=== PATIENT | female | born 1940 | race Caucasian/White ===

== ENCOUNTER → 2016-03-29 | Outpatient (CLI) | payer OTHER, MEDICARE ==
[~2016-03-29] MED LIST: ADVIN10/60 INH; ASPI1TAB PO; CETI10TA84 PO; CYAN250T PO; FURO40TA3 PO; LISI40TA PO; LPT/40 PO; MECL1TAB42 PO; METO-452 PO; OMEG1CAP81 PO; POTA-327 PO; PRVHFAIN INH; SENN1TAB65 PO
--- NOTE | 2016-03-29 09:53 | DIAGNOSTIC IMAGING REPORT ---
CHEST 2 VIEWS ROUTINE CLINICAL HISTORY: Cough. COMPARISON STUDY: Chest radiograph May 20, 2012. FINDINGS: Elevation of the right hemidiaphragm is unchanged. No pneumothorax or pleural effusion is present. Linear left basilar opacity is suggestive of atelectasis. There is no evidence of pulmonary edema. Cardiac size is at the upper limits of normal. The appearance of the chest is unchanged. IMPRESSION: No acute cardiopulmonary findings. Electronically signed by: Toni Waller M.D. 03/29/2016 9:52 AM
== END | disposition home or self-care (01) ==
LOC: C.RADBC 09:35
PROVIDERS: ATTEND Internal Medicine
DX: R05 Cough (principal)

== ENCOUNTER → 2016-05-29 | Outpatient (CLI) | payer OTHER, MEDICARE ==
[~2016-05-29] MED LIST changes: -METO-452 PO; +METO1TAB66 PO
[2016-05-29 10:23] LABS: BLOOD UREA NITROGEN 11 mg/dl (7-18); BUN/CREATININE RATIO 16.8 (10-20); CALCIUM 9.2 mg/dl (8.5-10.1); CARBON DIOXIDE 30 mmol/L (21-32); CHLORIDE 104 mmol/L (98-107); CREATININE 0.66 mg/dl (0.60-1.20); GLUCOSE 98 mg/dl (70-99); POTASSIUM 3.4 mmol/L (3.5-5.1); SODIUM 145 mmol/L (136-145)
[2016-05-29 11:21] LABS: ESTIMATED AVERAGE GLUCOSE 111 mg/dl; HA1C FLAG Normal (Normal)
== END | disposition home or self-care (01) ==
LOC: C.LABFOXMH 09:29
PROVIDERS: ATTEND Internal Medicine
DX: E11.9 Type 2 diabetes mellitus without complications (principal)

== ENCOUNTER → 2016-06-19 | Outpatient (CLI) | payer OTHER, MEDICARE | END | disposition home or self-care (01) | LOC: C.LABFOXMH 07:55 | PROVIDERS: ATTEND Internal Medicine | DX: E87.6 Hypokalemia (principal) ==

== ENCOUNTER → 2016-08-15 | Outpatient (CLI) | payer OTHER, MEDICARE ==
[~2016-08-15] MED LIST changes: +METO-452 PO; -METO1TAB66 PO
--- NOTE | 2016-08-15 12:04 | DIAGNOSTIC IMAGING REPORT ---
CHEST 2 VIEWS ROUTINE CLINICAL HISTORY: COUGH dyspnea COMPARISON STUDY: 03/29/2016 FINDINGS: Chronic atelectatic change left base. Lungs otherwise are clear. No evidence for cardiac enlargement. IMPRESSION: Chronic change left base. No acute process. Electronically signed by: Juan Carlos Hopkins M.D. 08/15/2016 12:03 PM Dictated Date/Time: 08/15/2016 12:02 PM
== END | disposition home or self-care (01) ==
LOC: C.RADBC 11:41
PROVIDERS: ATTEND Internal Medicine
DX: R05 Cough (principal)

== ENCOUNTER → 2016-10-24 | Outpatient (CLI) | payer OTHER, MEDICARE ==
[~2016-10-24] MED LIST changes: -METO-452 PO; +METO1TAB66 PO
[2016-10-24 11:37] LABS: BLOOD UREA NITROGEN 11 mg/dl (7-18); BUN/CREATININE RATIO 15.4 (10-20); CARBON DIOXIDE 30 mmol/L (21-32); CHLORIDE 108 mmol/L (98-107); CHOLESTEROL 111 mg/dl (0-200); CHOLESTEROL/HDL RATIO 2.6; CREATININE 0.74 mg/dl (0.60-1.20); GLUCOSE 86 mg/dl (70-99); HDL CHOLESTEROL 42 mg/dl; LDL CHOLESTEROL CALCULATED 39 mg/dl; POTASSIUM 3.7 mmol/L (3.5-5.1); SODIUM 144 mmol/L (136-145); TRIGLYCERIDES 152 mg/dl (0-150); VERY LOW DENSITY LIPOPROT CALC 30 mg/dl
[2016-10-24 12:02] LABS: ESTIMATED AVERAGE GLUCOSE 105 mg/dl; HA1C FLAG Normal (Normal)
--- NOTE | 2016-11-01 08:23 | CODING QUERY MEDICAL NECESSITY ---
SUPPORTING DIAGNOSIS NEEDED A supporting diagnosis is required for the test/procedure performed on this patient in order for us to be reimbursed by the patient's insurance. Please provide a supporting diagnosis for the following test/procedure listed below next to the test name along with your signature. *If there is no additional diagnosis for this patient that would support the following test/procedure please document that below next to the test/procedure. Test(s)/Procedure(s) that require a supporting diagnosis: * HEMOGLOBIN A1C DIAGNOSIS: Provider Signature: Date: Thank you Nancy Sahu [employer] Once completed, please kindly fax back to [phone] For questions please call [phone]
== END | disposition home or self-care (01) ==
LOC: C.LABFOXMH 09:40
PROVIDERS: ATTEND Internal Medicine
DX: E88.81 Metabolic syndrome and other insulin resistance (principal); E11.9 Type 2 diabetes mellitus without complications

== ENCOUNTER → 2017-03-02 | Outpatient (CLI) | payer OTHER, MEDICARE ==
[~2017-03-02] MED LIST changes: +METO-452 PO; -METO1TAB66 PO
[2017-03-02 10:13] LABS: ALT/SGPT 32 U/L (12-78); AST/SGOT 18 U/L (15-37); BLOOD UREA NITROGEN 12 mg/dl (7-18); BUN/CREATININE RATIO 19.2 (10-20); CARBON DIOXIDE 31 mmol/L (21-32); CHLORIDE 104 mmol/L (98-107); CREATININE 0.64 mg/dl (0.60-1.20); GLUCOSE 96 mg/dl (70-99); POTASSIUM 4.2 mmol/L (3.5-5.1); SODIUM 138 mmol/L (136-145)
[2017-03-02 10:15] LABS: ALB/GLOB RATIO 1.1 (0.9-2); ALKALINE PHOSPHATASE 72 U/L (45-117); CHOLESTEROL 104 mg/dl (0-200); CHOLESTEROL/HDL RATIO 2.6; HDL CHOLESTEROL 40 mg/dl; LDL CHOLESTEROL CALCULATED 30 mg/dl; TRIGLYCERIDES 171 mg/dl (0-150); VERY LOW DENSITY LIPOPROT CALC 34 mg/dl
== END | disposition home or self-care (01) ==
LOC: C.LABFOXMH 09:41
PROVIDERS: ATTEND Internal Medicine
DX: E78.00 Pure hypercholesterolemia, unspecified (principal)

== ENCOUNTER → 2017-03-29 | Outpatient (CLI) | payer OTHER, MEDICARE ==
--- NOTE | 2017-03-30 14:36 | MAMMOGRAPHY REPORT ---
BILATERAL DIGITAL SCREENING MAMMOGRAM TOMOSYNTHESIS WITH CAD: 03/29/2017 CLINICAL HISTORY: Routine screening. Patient has no complaints. TECHNIQUE: Breast tomosynthesis in addition to standard 2D mammography was performed. Current study was also evaluated with a Computer Aided Detection (CAD) system. COMPARISON: Comparison is made to exams dated: 02/11/2016 mammogram, 02/08/2015 mammogram, 4 mammogram, 02/04/2013 mammogram, 02/02/2012 mammogram, and 01/20/2011 mammogram - [facility]. BREAST COMPOSITION: The tissue of both breasts is heterogeneously dense, which may obscure small mas ses. FINDINGS: There is a 12 mm asymmetry in the posterior right breast along the posterior nipple line o n the CC view that partially effaces on the corresponding tomosynthesis images and could represent no rmal fibroglandular tissue. However, additional spot compression tomosynthesis views and possible ul trasound are recommended. A questionable area of architectural distortion in the lateral left breast only seen on the CC tomosynthesis images (slice 33/68) for which additional spot compression tomosyn thesis views and possible ultrasound are recommended. There are scattered benign rim calcifications in the breasts. No other suspicious mass, architectura l distortion or cluster of microcalcifications is seen. IMPRESSION: ACR BI-RADS CATEGORY 0: INCOMPLETE EVALUATION: NEED ADDITIONAL IMAGING EVALUATION The 12 mm asymmetry in the right breast and questionable area of architectural distortion in the late ral left breast need additional imaging evaluation. The patient will be called to schedule an appointment. Approximately 10% of breast cancers are not detected with mammography. A negative mammographic report should not delay biopsy if a clinically suggestive mass is present. Noreen Ordaz M.D. ay/:03/29/2017 13:25:08 Stator Winder: Paulette TARANGO)(Renzo)(BD), [facility] letter sent: Addl Imaging 0 BI-RADS Code: ACR BI-RADS Category 0: Incomplete Evaluation: Need Additional Imaging Evaluation
== END ==
LOC: C.MAMM 11:36
PROVIDERS: ATTEND Internal Medicine
DX: Z12.31 Encounter for screening mammogram for malignant neoplasm of breast (principal); N64.89 Other specified disorders of breast

== ENCOUNTER → 2017-04-04 | Outpatient (CLI) | payer OTHER, MEDICARE ==
--- NOTE | 2017-04-04 15:32 | MAMMOGRAPHY REPORT ---
BILATERAL DIGITAL DIAGNOSTIC MAMMOGRAM TOMOSYNTHESIS AND TARGETED RIGHT ULTRASOUND: 04/04/2017 CLINICAL HISTORY: 76-year-old woman called back from screening mammography for a right breast asymmet ry and possible architectural distortion in the left lateral breast. Family history of breast cancer = sister. TECHNIQUE: Spot compression right CC, left CC and right MLO tomosynthesis images were obtained. COMPARISON: Comparison is made to exams dated: 03/29/2017 mammogram, 02/11/2016 mammogram, 02/08/2015 mammogram, 02/05/2014 mammogram, 02/04/2013 mammogram, and 02/02/2012 mammogram - [facility]. BREAST COMPOSITION: The tissue of both breasts is heterogeneously dense, which may obscure small mas ses. FINDINGS: The spot compression tomosynthesis images of the left breast demonstrate complete effacemen t of the possible area of architectural distortion in the lateral middle one third of the breast. Th e questionable distortion seen on screening mammography most likely represented normal overlapping ti ssue. There are no other areas of distortion or suspicious masses in the visualized left breast. A circumscribed mass in the lateral left breast appears similar dating back to 02/11/2016, most likely benign. The spot compression tomosynthesis views of the right breast demonstrate effacement of the 13 mm asym metry is seen on the right CC projection. There is no evidence of a persistent mass or architectural distortion. No persistent asymmetry is seen. Further evaluation with ultrasound was performed. Targeted ultrasound was performed throughout the right breast with particular attention to the 12:00, retroareolar and 6:00 axes. Numerous anechoic cysts and cyst clusters are seen throughout the right breast most notably in the 6:00 axis and 11:00 axis. It is unclear if a dominant anechoic cyst in t he 6:00 right breast, 3 cm from the nipple measuring 8 mm may possibly correspond to the mammographic asymmetry. However, no suspicious solid mass is seen on targeted ultrasound. IMPRESSION: ACR-BI-RADS CATEGORY 3: PROBABLY BENIGN, TARGETED ULTRASOUND ACR-BI-RADS CATEGORY 3: PRO BABLY BENIGN 1. There is partial effacement of an asymmetry in the middle one third of the right breast along the posterior nipple line on the CC view with supplemental spot compression tomosynthesis images. This could represent normal tissue or possibly correspond to a benign anechoic 8 mm cyst identified in the 6:00 right breast on ultrasound. Overall, although the appearance is probably benign, a short inter emmanuel follow-up right diagnostic tomosynthesis mammogram and possible repeat ultrasound is recommended to ensure stability in 6 months. 2. Effacement of the possible architectural distortion in the lateral left breast with additional sp ot compression tomosynthesis images, suggesting it represented normal overlapping tissue. These results and recommendations were discussed with the patient at the time of the exam. She tenta tively scheduled a follow-up appointment prior to leaving our department. Approximately 10% of breast cancers are not detected with mammography. A negative mammographic report should not delay biopsy if a clinically suggestive mass is present. Noreen Ordaz M.D. ay/:04/04/2017 13:52:21 Payroll Clerk: Gallo TARANGO)(Renzo), [facility] letter sent: Follow Up Recommended 3 BI-RADS Code: ACR-BI-RADS Category 3: Probably Benign Ultrasound BI-RADS: ACR-BI-RADS Category 3: Pr obably Benign
== END | disposition home or self-care (01) ==
LOC: C.MAMM 12:08
PROVIDERS: ATTEND Internal Medicine
DX: N64.89 Other specified disorders of breast (principal); N60.01 Solitary cyst of right breast

== ENCOUNTER → 2017-04-16 | Outpatient (CLI) | payer OTHER, MEDICARE ==
--- NOTE | 2017-04-16 13:49 | DIAGNOSTIC IMAGING REPORT ---
RIGHT ANKLE 3 VIEWS HISTORY: FALL,PAIN/SWELLING OF RIGHT ANKLE COMPARISON: None. FINDINGS: Tiny ossific density along the inferior aspect of the lateral malleolus consistent within age-indeterminate avulsion injury. Otherwise, no acute fracture or dislocation within the right ankle. Diffuse soft tissue swelling. No radiopaque foreign bodies. IMPRESSION: Tiny ossific density along the inferior aspect of the lateral malleolus consistent within age-indeterminate avulsion injury. Otherwise, no acute fracture or dislocation within the right ankle. Electronically signed by: Harish Rendon M.D. 04/16/2017 1:48 PM Dictated Date/Time: 04/16/2017 1:40 PM
== END | disposition home or self-care (01) ==
LOC: C.RADBC 13:15
PROVIDERS: ATTEND Internal Medicine
DX: M85.88 Other specified disorders of bone density and structure, other site (principal); M25.571 Pain in right ankle and joints of right foot; W19.XXXA Unspecified fall, initial encounter

== ENCOUNTER → 2017-07-16 | Outpatient (CLI) | payer OTHER, MEDICARE ==
--- NOTE | 2017-07-16 11:07 | DIAGNOSTIC IMAGING REPORT ---
TWO VIEW CHEST CLINICAL HISTORY: Cough of several weeks' duration. FINDINGS: PA and lateral chest radiographs are compared to study dated 08/15/2016. The heart is mildly enlarged and there is atherosclerotic calcification of the thoracic aorta. The pulmonary vasculature is noncongested. Chronic interstitial thickening is similar to previous. Atelectasis is noted at both lung bases. There is no airspace consolidation typical for pneumonia or pleural effusion. There is no pneumothorax. The skeletal structures are osteopenic. Degenerative change is seen throughout the thoracic spine. IMPRESSION: Mild cardiac enlargement with no acute cardiopulmonary abnormality. Electronically signed by: Loi Payton M.D. 07/16/2017 11:05 AM Dictated Date/Time: 07/16/2017 11:03 AM
[2017-07-16 14:18] LABS: BLOOD UREA NITROGEN 11 mg/dl (7-18); CALCIUM 9.4 mg/dl (8.5-10.1); CARBON DIOXIDE 32 mmol/L (21-32); CREATININE 0.67 mg/dl (0.60-1.20); GLUCOSE 126 mg/dl (70-99); POTASSIUM 4.2 mmol/L (3.5-5.1); SODIUM 141 mmol/L (136-145)
== END ==
LOC: C.RADBC 10:22
PROVIDERS: ATTEND Internal Medicine
DX: R60.9 Edema, unspecified (principal); R05 Cough

== ENCOUNTER 2022-07-18 10:16 | Inpatient (IN) ==
--- NOTE | 2022-07-05 09:52 | PAT Medication Instructions ---
Medication Instructions Date of Service July 05, 2022 Home Medications carvedilol 6.25 mg tablet 6.25 mg PO BID cetirizine 10 mg tablet (Zyrtec) 5 mg PO QAM cholecalciferol (vitamin D3) 50 mcg (2,000 unit) capsule (Vitamin D3) 2,000 unit PO QAM fluticasone 100 mcg-salmeterol 50 mcg/dose blistr powdr for inhalation (Advair Diskus) 1 puff inhalation BID fosinopril 40 mg tablet 40 mg PO QAM furosemide 40 mg tablet 20 mg PO 5XWK gabapentin 100 mg capsule 100 mg PO BID omega 4-hpa-xdf-fish oil 1,000 mg (120 mg-180 mg) capsule (Fish Oil) 1 cap PO QPM omega 3-qid-wti-fish oil 1,000 mg (120 mg-180 mg) capsule (Fish Oil) 2 cap PO QAM potassium chloride 10 mEq tablet,extended release(part/cryst) 10 meq PO BID albuterol sulfate 1.25 mg/3 mL solution for nebulization 1.25 mg inhalation QID PRN ascorbic acid (vitamin C) 1,000 mg tablet (Vitamin C) 1 g PO QAM biotin 1 mg capsule 1 mg PO QAM fluticasone fur. 100 mcg-umeclid 62.5 mcg-vilant 25 mcg inhalat.powder (Trelegy Ellipta) 1 inh inhalation QAM hydrocodone-homatropine 5 mg-1.5 mg tablet 1 tab PO HS PRN magnesium 250 mg tablet 250 mg PO QPM polyethylene glycol 3350 17 gram oral powder packet (Miralax) 17 g PO DAILY PRN vitamin E 400 unit tablet 45 mg PO QAM vitamins A,C,S-pfec-ydpiap 2,148 mcg-113 mg-45 mg-17.4 mg tablet (PreserVision AREDS) 1 tab PO BID STOP taking 2 weeks before surgery (or as soon as possible if surgery is within 2 weeks) omega 8-npq-bjo-fish oil 1,000 mg (120 mg-180 mg) capsule (Fish Oil) 1 cap PO QPM omega 3-afy-daa-fish oil 1,000 mg (120 mg-180 mg) capsule (Fish Oil) 2 cap PO QAM vitamin E 400 unit tablet 45 mg PO QAM vitamins A,C,N-wodu-stxqxs 2,148 mcg-113 mg-45 mg-17.4 mg tablet (PreserVision AREDS) 1 tab PO BID biotin 1 mg capsule 1 mg PO QAM DO NOT take the morning of surgery cetirizine 10 mg tablet (Zyrtec) 5 mg PO QAM cholecalciferol (vitamin D3) 50 mcg (2,000 unit) capsule (Vitamin D3) 2,000 unit PO QAM fosinopril 40 mg tablet 40 mg PO QAM furosemide 40 mg tablet 20 mg PO 5XWK potassium chloride 10 mEq tablet,extended release(part/cryst) 10 meq PO BID ascorbic acid (vitamin C) 1,000 mg tablet (Vitamin C) 1 g PO QAM polyethylene glycol 3350 17 gram oral powder packet (Miralax) 17 g PO DAILY PRN Take morning of surgery With a small sip of water, OTHERWISE NOTHING TO EAT OR DRINK AFTER MIDNIGHT: carvedilol 6.25 mg tablet 6.25 mg PO BID fluticasone 100 mcg-salmeterol 50 mcg/dose blistr powdr for inhalation (Advair Diskus) 1 puff inhalation BID gabapentin 100 mg capsule 100 mg PO BID fluticasone fur. 100 mcg-umeclid 62.5 mcg-vilant 25 mcg inhalat.powder (Trelegy Ellipta) 1 inh inhalation QAM albuterol sulfate 1.25 mg/3 mL solution for nebulization 1.25 mg inhalation QID PRN(use if needed; please bring with you to hospital day of surgery if possible) Take evening before surgery carvedilol 6.25 mg tablet 6.25 mg PO BID fluticasone 100 mcg-salmeterol 50 mcg/dose blistr powdr for inhalation (Advair Diskus) 1 puff inhalation BID gabapentin 100 mg capsule 100 mg PO BID potassium chloride 10 mEq tablet,extended release(part/cryst) 10 meq PO BID magnesium 250 mg tablet 250 mg PO QPM albuterol sulfate 1.25 mg/3 mL solution for nebulization 1.25 mg inhalation QID PRN(if needed) hydrocodone-homatropine 5 mg-1.5 mg tablet 1 tab PO HS PRN(if needed) Other Notes If you have any questions please call us at [phone] or [phone] or [phone] or [phone]
--- NOTE | 2022-07-07 09:40 | Anesthesiology Consultation ---
Date of Service July 07, 2022 Assessment & Plan (1) Encounter for pre-operative examination: - awaiting cardiology pre-op evaluation. - Case discussed in detail with Dr. Dennis who advised pt to have cardiology pre-op evaluation. Pt aware, states she has only ever followed with [facility] in the past and would prefer [facility] if possible. Surgeon's office made aware. - Outpatient joint assessment: Patient is currently scheduled for inpatient pathway. If re-evaluated pending system levels during current pandemic/surgeon requests outpatient pathway, patient is not acceptable candidate for outpatient joint program from anesthesia standpoint. Chart Review Chart Review: Pending: Refer to Additional Notes / Consult section and Patient seen in Pre Admission Testing Teaching & Discussion Pre-Anesthesia Teaching/Discussion Notes: Instructed NPO after midnight before surgery, except medications with 15 cc of water. Medication instructions provided according to the PAT guidelines. History Surgery Operation Date: 07/18/22 12:30 Proposed Procedures p Right Total Knee Arthroplasty - Sanjeev Rosales MD Height/Weight Height: 5 ft 4 in Weight: 83.3 kg Allergies Allergy/AdvReac Type Severity Reaction Status Date / Time NSAIDS (Non-Steroidal AdvReac Intermediate hypertensio Verified 07/07/22 08:54 Anti-Inflamma n Sulfa (Sulfonamide AdvReac Unknown Diarrhea Verified 07/04/22 14:18 Antibiotics) levaquin AdvReac Severe QT Uncoded 07/07/22 08:54 prolongation Medications Home Medications Medication Instructions Recorded Confirmed Last Taken carvedilol 6.25 mg tablet 6.25 mg PO BID 05/23/18 07/04/22 Unknown cetirizine 10 mg tablet (Zyrtec) 5 mg PO QAM 05/23/18 07/04/22 Unknown cholecalciferol (vitamin D3) 50 2,000 unit PO QAM 05/23/18 07/04/22 Unknown mcg (2,000 unit) capsule (Vitamin D3) fosinopril 40 mg tablet 40 mg PO QAM 05/23/18 07/04/22 Unknown furosemide 40 mg tablet 20 mg PO 5XWK 05/23/18 07/04/22 Unknown gabapentin 100 mg capsule 100 mg PO BID 05/23/18 07/04/22 Unknown omega 3-yiz-nvo-fish oil 1,000 mg 1 cap PO QPM 05/23/18 07/04/22 Unknown (120 mg-180 mg) capsule (Fish Oil) omega 6-dvd-uru-fish oil 1,000 mg 2 cap PO QAM 05/23/18 07/04/22 Unknown (120 mg-180 mg) capsule (Fish Oil) potassium chloride 10 mEq 10 meq PO BID 05/23/18 07/04/22 Unknown tablet,extended release(part/cryst) albuterol sulfate 1.25 mg/3 mL 1.25 mg inhalation QID PRN sob 07/04/22 07/04/22 Unknown solution for nebulization ascorbic acid (vitamin C) 1,000 mg 1 g PO QAM 07/04/22 07/04/22 Unknown tablet (Vitamin C) biotin 1 mg capsule 1 mg PO QAM 07/04/22 07/04/22 Unknown fluticasone fur. 100 mcg-umeclid 1 inh inhalation QAM 07/04/22 07/04/22 Unknown 62.5 mcg-vilant 25 mcg inhalat.powder (Trelegy Ellipta) hydrocodone-homatropine 5 mg-1.5 1 tab PO HS PRN ud 07/04/22 07/04/22 Unknown mg tablet magnesium 250 mg tablet 250 mg PO QPM 07/04/22 07/04/22 Unknown polyethylene glycol 3350 17 gram 17 g PO DAILY PRN Constipation 07/04/22 07/04/22 Unknown oral powder packet (Miralax) vitamin E 400 unit tablet 45 mg PO QAM 07/04/22 07/04/22 Unknown vitamins A,C,L-qwwi-jlzruk 2,148 1 tab PO BID 07/04/22 07/04/22 Unknown mcg-113 mg-45 mg-17.4 mg tablet (PreserVision AREDS) chana (Ultra-Light Rollator misc) #1 ea 07/07/22 07/07/22 Unknown Additional Notes: Pt called office after PAT appt to state is no longer Rx Advair diskus, is using Trelegy. Medication list updated. Past Medical History Medical History (Updated 07/07/22 @ 09:36 by Diane Salazar PA-C) Asthma COPD (chronic obstructive pulmonary disease) daily inhaler use, last albuterol nebulizer in early 2021 Frequent PVCs saw [facility] in 2018, lost to f/u HLD (hyperlipidemia) HTN (hypertension) controlled, stable per pt Patient denies h/o stroke, seizures, heart attack, heart failure, DM, blood clots or blood transfusions. Exercise / Class Metabolic Activity III < 4 Walking/Shop/Light housework (occasional SOB with usual activities on flat surfaces, ambulates with rolling walker) Past Family History Family History Other No family history of adverse response to anesthesia Past Surgical History Surgical History History of cataract surgery History of colonoscopy History of hysterectomy History of tooth extraction Past Anesthesia History No Hx of Anesthesia Complications and No Family Hx of Anesthesia Complications History of PONV History of PONV (with hysterectomy) and Hx of Motion Sickness Social History Smoking Status: Former smoker Do You Dip or Chew Tobacco: No Smoking End Date: quit >30 years ago Hx Alcohol Use: No Hx Substance Use: No substance use type: does not use Review of Systems Snoring, denies witnessed apneas. Chronic productive cough of white/clear sputum, pt states is usual for this time of year due to elevated pollen levels. Patient denies chest pain, reflux, fever, chills, wheezing, or palpitations. Physical Exam Vital Signs Vitals BP 148/80 P 71 TEMP 98 SP02 94% on RA RESP 17 Physical Full cervical extension range of motion without pain TMD 3.5 finger breadths Mallampati Score 2 Dentition: upper partial and several caps/crowns; denies chipped or loose teeth Lungs: normal respiratory effort. Clear throughout to auscultation, no adventitious breath sounds Cardiac: regular rate and rhythm, no murmurs noted Carotid arteries: negative bruit bilat Lab Results Anesthesia Preop Results Results Anesthesia Widget: WBC 5.91 K/ul (4.8-10.8) 07/07/22 Hgb 14.0 g/dl (12.0-16.0) 07/07/22 Hct 42.2 % (37.0-47.0) 07/07/22 Plt 192 K/uL (130-400) 07/07/22 Na 141 mmol/L (136-145) 07/07/22 K 4.6 mmol/L (3.5-5.1) 07/07/22 Cl 105 mmol/L (98-107) 07/07/22 CO2 32 mmol/L (21-32) 07/07/22 BUN 16 mg/dl (6-23) 07/07/22 Creat 0.53 mg/dl (0.6-1.2) L 07/07/22 Glucose Level 93 mg/dl (70-99(Fasting)) 07/07/22 PT 10.9 Seconds (9.0-12.0) 07/07/22 PTT 25.6 Seconds (21.0-31.0) 07/07/22 INR 1.0 (0.9-1.1) 07/07/22 Blood Type A Negative 07/07/22 Antibody Screen NEGATIVE 07/07/22 Testing Electrocardiogram Date: 07/07/22 Sinus rhythm with 1st degree AV block, rate 84 bpm Inferior infarct, cited on ro before 05/20/12 Chest X-Ray Date: 07/07/22 No pneumothorax or pleural effusion is present. Elevation/eventration of the hemidiaphragms is unchanged. Cardiomediastinal silhouette is stable. Cardiomegaly is unchanged. Linear bibasilar densities favor atelectasis. There is no consolidation to suggest pneumonia. IMPRESSION: No acute cardiopulmonary findings. No change in appearance of the chest. Other Testing Venous doppler 10/06/21 No DVT within the LLE Carotid doppler 07/13/20 1. There is no sonographic evidence of hemodynamically significant stenosis in the right or left carotid arterial system. 2. Antegrade flow is shown in the vertebral arteries. COVID-19 Risk Screen Screening Information COVID-19 Screen Date: 07/07/22 Exposure 21 Days Family/Household +COVID Last 21 Days: No Exposure 10 Days Any COVID Exposure Last 10 Days: No Symptoms Last 10 Days Experienced COVID Sx Last 10 Days: No + COVID 0-90 Days COVID + in Last 0-90 Days: No
[~2022-07-18 10:16] MED LIST changes: +ACETAMINOPHEN 500 MG TAB PO SCH; -ADVIN10/60 INH; -ASPI1TAB PO; +BUPIVACAINE 0.25% PF 30 ML VIAL ONE; +BUPIVACAINE 0.5 % 5 MG/1 ML PF 10ML VIAL ONE; +BUPIVACAINE LIPOSOME/PF 266 MG, BUPIVACAINE/EPINEPHRINE 50 ML, SODIUM CHLORIDE 0.9% PF ... INFIL SCH; -CETI10TA84 PO; -CYAN250T PO; +CeleBREX 200 MG CAP PO SCH; +FAMOTIDINE 20 MG TAB PO SCH; -FURO40TA3 PO; -LISI40TA PO; -LPT/40 PO; +LR 500ML BOLUS, THEN 15ML/HR IV SCH; +LR 60ML/HR IV SCH; -MECL1TAB42 PO; -METO-452 PO; +METOCLOPRAMIDE HCL 10 MG TABLET PO SCH; -OMEG1CAP81 PO; -POTA-327 PO; -PRVHFAIN INH; -SENN1TAB65 PO; +TRANEXAMIC ACID 1,000 MG **IV Intra-op IV SCH; +ceFAZolin 2000MG 2,000 MG/15 ML SYR IV SCH; +dexAMETHasone**PF** 10 MG/ML VIAL IV SCH
--- NOTE | 2022-07-18 10:45 | History & Physical Bridge Note ---
Date of Service July 18, 2022 History & Physical Bridge Note I have examined the patient, reviewed the History & Physical and in the interval since the performance of the History & Physical I have noted the following changes of clinical significance: no changes noted
[2022-07-18] MEDS ORDERED: ONDANSETRON INJ 2 MG/ML 2 ML VIAL IV PRN ×2 (11:13→15:11)
[2022-07-18] MEDS ORDERED: ATROPINE SULFATE 0.1 MG/ML 10ML SYR IV PRN (11:13)
[2022-07-18] MEDS ORDERED: ePHEDrine sulfate 50 MG/ML AMP IV PRN (11:13)
[2022-07-18] MEDS ORDERED: DEXAMETHASONE SOD INJ 4 MG/ML VIAL IV PRN (11:13)
[2022-07-18] MEDS ORDERED: PHENYLEPHRINE 100MCG/ML 5ML SYR IV PRN (11:13)
[2022-07-18] MEDS ORDERED: MIDAZOLAM HCL 1 MG/ML 2ML VIAL ONE ×2 (11:41→12:02)
[2022-07-18] MEDS ORDERED: BUPIVACAINE LIPOSOME 1.3% 266 MG/20 ML VIAL ONE (12:01)
[2022-07-18] MEDS ORDERED: BUPIVACAINE/EPINEPHRINE 0.25% 1:200,000 30 ML VIAL ONE ×2 (12:01→12:21)
[2022-07-18] MEDS ORDERED: SODIUM CHLORIDE 0.9% PF 50 ML VIAL ONE (12:01)
[2022-07-18] MEDS ORDERED: PHENYLEPHRINE 100MCG/ML 5ML SYR ONE (12:54)
[2022-07-18] MEDS ORDERED: PROPOFOL IV EMULSION 10 MG/ML 20 ML VIAL IV ONE (12:54)
--- NOTE | 2022-07-18 14:18 | Operative Report ---
PG Post Operative Report Pre & Post Diagnosis Operation Date: 07/18/22 12:30 Pre-Op Diagnosis: Right Knee Degenerative Joint Disease Post-Op Diagnosis: Right Knee Degenerative Joint Disease I identified the patient and participated in the time-out.: Yes Procedure Operation Date: 07/18/22 12:30 Actual Procedures p Right Total Knee Arthroplasty, Cemented(Right) - Sanjeev Rosales MD Surgeon Sanjeev Rosales MD Time Study Engineer Chaz Yu PA-C Estimated Blood Loss 50 Findings Consistent with Post-Op Diagnosis Operative findings were advanced right knee DJD. She had extensive grade 4 [id number] disease in all 3 compartments most severe in the medial compartment. Osteophytes in all 3 compartments. Diffuse osteopenia. Moderate- sized joint effusion. Specimens Right knee sent for pathology Anesthesia Type Spinal MAC Complications none Disposition Accompanied Patient To Recovery: No Indications Patient is an 82-year-old fairly active female who has had a long history of right knee pain discomfort describes gotten worse over time patient been through extensive conservative treatments became less successful over time. She failed all conservative measures. As she elected to proceed with right total knee replacement. Description of Procedure Operative implants consist of: 1 Biomet Vanguard size 65 right posterior stabilized femoral component. 2. Biomet size 67 tibial tray. 3. 10 mm posterior stabilized polyethylene insert. 4. 31 x 8 all poly patella. The patient was taken to the operating, identified, and placed on the operating table supine position protectors were properly padded. IV antibiotics tried by anesthesia team. A spinal anesthetic and abductor canal block had been divided holding area. Epperson catheter was placed in sterile fashion for right thigh high tourniquet was then placed in the right lower extremities then prepped and draped in usual sterile fashion. The right leg was elevated and exsanguinated with use of an Esmarch and the tourniquet was placed at 300 mmHg. An anterior approach of the right knee was then performed to longitudinal incision centered over the patella. Sharp dissection was carried through subcutaneous tissue down the extensor mechanism. A medial parapatellar arthrotomy incision was made. Some subperiosteal dissection was carried out medially. The fat pad was resected from Neath patella tendon. The lateral patellofemoral ligament was released. Patella subluxated laterally and the knee was flexed with the osteophytes taken off distal femur. The ACL and PCL were then released from distal femur the tibia subluxated anteriorly. The external tibial alignment jig was then placed the interface the tibia and adjusted 14 mm medially. Proximal tibial cut was made remove about a millimeter or 2 of bone from the most deficient aspect medial tibial plateau. Some osteophytes taken off medial and posterior medially. Tibia sized to a size 67. Attention drawn the femur. The distal femur was entered with a sharp drill. Intramedullary canal was suction. A right 5 degree valgus cutting guide was placed. Distal femoral cutting block was pinned in place. Distal femoral cut was made to take an additional 3 mm of bone off distal femur. The femur was then sized to a size 65. We did downsize this almost an entire size in order to meet the medial and lateral dimensions. The AP cutting block was pinned parallel to the epicondylar axis which was 3 degrees of external rotation. The anterior cut, anterior chamfer, posterior cut, posterior chamfer cuts were made. The box cutting guide was placed in just slight lateral and the box cut was made. The knee was flexed. The remnants of the medial and lateral menisci were excised. The osteophytes were taken off the posterior aspect the femur. Trial femoral component was placed. Tibial tray was pinned in maximum external rotation and the drill and stem punch used to create defect in proximal tibia for the tibial tray. The knee was then trialed and 10 mm insert fit most appropriately. Attention drawn the patella. The patella was cleaned of all soft tissues. Patella thickness measured 20 mm in thickness was cut down to 13. Was sized to a size 31 patella. The lug holes were drilled for the 31 patella. The lateral osteophytes removed. Patella button was placed. Knee was taken through range of motion and the patella tracked nicely with no thumbs test. Attention drawn to place the permanent components. Nupathe all trial components were removed. A bone plug was placed in the distal femur limit blood loss. A double batch Palacos G cement was mixed. Biomet Vanguard size 65 right posterior stabilized femoral component, size 67 tibial tray, a 10 mm posterior stabilized polyethylene insert, and a 31 x 8 all Paller patella then cemented in place. The knee was brought out into full extension till cement hardened. Final cement check was then performed. The pericapsular tissues were injected with a total of 100 cc of combination of 20 cc of Exparel, 30 cc normal saline, 50 cc of quarter percent Marcaine with epinephrine. Patient did receive 1 g tranexamic acid. The tourniquet was then let down for final tourniquet time of 48 minutes. Hemostasis assured use electrocautery. Extensor mechanism closed with combination one #1 PDS suture #1 Vicryl suture in a [id number] fashion. The extensor mechanism was checked found to be intact the subcutaneous tissue then closed with 2 Dexon suture in buried interrupted fashion skin was closed skin juliet. Leg was then cleaned and dried and a sterile dressing with Xeroform, 4 fours, sterile cast padding, Don bandage were applied. Patient then transferred to the recovery room in stable condition. The patient tolerated the procedure well and there were no complications. Chaz Yu, my physician assistant controller, was present for the entire procedure. His assistance was essential and required for appropriate patient positioning, prepping and draping, surgical exposure, performing the technical details of the operation, placement the implants, closure of the wound, and placement of the sterile bandage. I attest to the content of the Intraoperative Record and any orders documented therein. Any exceptions are noted below.
--- NOTE | 2022-07-18 14:34 | XRay Report ---
XR knee RT 1 or 2V routine CLINICAL HISTORY: Surgical Post Op TECHNIQUE: 2 views of the right knee were obtained. Comparison: Comparison is made to knee radiographs 06/28/2022 FINDINGS: Patient is status post total knee arthroplasty with expected postsurgical changes including soft tiss ue swelling and subcutaneous emphysema. No periarticular lucency or hardware fracture is seen. IMPRESSION: Expected postoperative appearance status post placement of total knee arthroplasty. ACT 112: Negative or not required by law. Electronically signed by: Rodrick Luz M.D. 07/18/2022 2:33 PM
--- NOTE | 2022-07-18 14:58 | Anesthesiology Progress Note ---
Date of Service July 18, 2022 Anesthesia Post Procedure Vital Signs Vital Signs: Temp Pulse Pulse Resp BP Pulse Ox O2 Del Method 07/18/22 14:50 36.5 C 66 18 160/82 H 95 Room Air 07/18/22 14:40 36.0 C L 67 17 157/83 H 94 Room Air 07/18/22 14:30 36.0 C L 69 19 142/70 H 94 Room Air 07/18/22 14:20 36.0 C L 71 22 137/75 95 Room Air 07/18/22 14:09 36.0 C L 73 20 123/69 97 Oxymask 07/18/22 11:14 36.5 C 76 20 182/91 H 95 Room Air O2 Flow Rate 07/18/22 14:50 07/18/22 14:40 07/18/22 14:30 07/18/22 14:20 07/18/22 14:09 7 07/18/22 11:14 Transfer of Care Handoff Completed per policy Notes Mental Status: alert / awake / arousable and participated in evaluation Nausea / Vomiting: adequately controlled Pain: adequately controlled Airway Patency, RR, SpO2: stable & adequate BP & HR: stable & adequate Hydration State: stable & adequate Anesthetic Complications: no major complications apparent and Pt Satisfied with anesthetic care
[2022-07-18] MEDS ORDERED: AMINO ACID PO SCH (15:11)
[2022-07-18] MEDS ORDERED: ALUMINUM/MAGNESIUM SUSP 30 ML UDC PO PRN (15:11)
[2022-07-18] MEDS ORDERED: METOCLOPRAMIDE HCL INJ 5 MG/ML 2 ML VIAL IV PRN (15:11)
[2022-07-18] MEDS ORDERED: HYDROmorphone INJ 0.5 MG/0.5 ML SYR IV PRN (15:11)
[2022-07-18] MEDS ORDERED: NALOXONE HCL 0.4 MG/1 ML VIAL/CARP IV PRN (15:11)
[2022-07-18] MEDS ORDERED: POLYETHYLENE (MIRALAX) 17 GM PACK PO PRN (15:11)
[2022-07-18] MEDS ORDERED: oxyCODONE HCL IR 5 MG TAB (IMMEDIATE RELEASE) PO PRN (15:11)
[2022-07-18] MEDS ORDERED: bisacodyL 10 MG SUPP PR PRN (15:11)
[2022-07-18] MEDS ORDERED: MAGNESIUM HYDROXIDE SUSP 30 ML UDC PO PRN (15:11)
[2022-07-18] MEDS ORDERED: ALBUTEROL 0.083% NEBU SOLN 3 ML VIAL INH PRN (15:34)
[2022-07-18] MEDS: SODIUM CHLORIDE 0.9% 1000ML 1,000 ML IV SCH (16:33)
[2022-07-18] MEDS: ASCORBIC ACID 500 MG TAB PO SCH (17:33)
[2022-07-18] MEDS: CEROVITE ADV FORMULA TAB PO SCH (17:33)
[2022-07-18] MEDS: KETOROLAC TROMETHAMINE 15 MG/ML VIAL IV SCH (17:34)
[2022-07-18] MEDS ORDERED: TRANEXAMIC ACID / 0.7% NACL 1,000 MG/100 ML BAG IV SCH (20:15)
[2022-07-18] MEDS: ceFAZolin 2000MG 2,000 MG/15 ML SYR IV SCH (20:42)
[2022-07-18] MEDS: ACETAMINOPHEN 500 MG TAB PO SCH (20:46)
[2022-07-18] MEDS: POTASSIUM CHLORIDE 10 MEQ TABCR PO SCH (20:47)
[2022-07-18] MEDS: DOCUSATE SODIUM 100 MG CAP PO SCH (20:47)
[2022-07-18] MEDS: GABAPENTIN 100 MG CAP PO SCH (20:47)
[2022-07-18] MEDS: ASPIRIN 81 MG ECTAB PO SCH (20:47)
[2022-07-18] MEDS: carvediloL 6.25 MG TAB PO SCH (20:49)
[2022-07-18] MEDS ORDERED: SENNA 8.6 MG TAB PO SCH ×2 (21:00)
[2022-07-18] MEDS ORDERED: OMEGA-3 (PURIFIED FISH OIL) 1 GM CAP PO SCH (21:00)
[2022-07-18] MEDS ORDERED: MAGNESIUM OXIDE 400 MG TAB PO SCH (21:00)
[2022-07-19] MEDS: KETOROLAC TROMETHAMINE 15 MG/ML VIAL IV SCH ×3 (00:01→11:51)
[2022-07-19] MEDS: SODIUM CHLORIDE 0.9% 1000ML 1,000 ML IV SCH (02:23)
[2022-07-19] MEDS: ceFAZolin 2000MG 2,000 MG/15 ML SYR IV SCH (03:50)
[2022-07-19 07:37] LABS: Hematocrit (blood only) 35.8 % (37.0-47.0); Hemoglobin 12.6 g/dl (12.0-16.0); Mean Corpuscular Hemoglobin 31.7 pg (25.0-34.0); Mean Corpuscular Hgb Conc 35.2 g/dL (32.0-36.0); Mean Corpuscular Volume 90.2 fL (80.0-100.0); Mean Platelet Volume 10.9 fL (9.4-12.4); Platelet Count 217 K/uL (130-400); RDW Coefficient of Variation 12.9 % (11.5-14.5); RDW Standard Deviation 42.7 fL (36.4-46.3); Red Blood Count 3.97 M/uL (4.20-5.40); White Blood Count 17.74 K/ul (4.8-10.8)
[2022-07-19] MEDS: ASCORBIC ACID 500 MG TAB PO SCH (07:58)
[2022-07-19] MEDS: CEROVITE ADV FORMULA TAB PO SCH (07:59)
[2022-07-19] MEDS: ACETAMINOPHEN 500 MG TAB PO SCH ×2 (07:59→14:23)
[2022-07-19] MEDS: ASPIRIN 81 MG ECTAB PO SCH (08:00)
[2022-07-19] MEDS ORDERED: dexAMETHasone 10 MG in SYRINGE 0 ML IV SCH (08:00)
[2022-07-19] MEDS: carvediloL 6.25 MG TAB PO SCH (08:01)
[2022-07-19] MEDS: DOCUSATE SODIUM 100 MG CAP PO SCH (08:03)
[2022-07-19] MEDS: GABAPENTIN 100 MG CAP PO SCH (08:06)
[2022-07-19] MEDS: POTASSIUM CHLORIDE 10 MEQ TABCR PO SCH (08:07)
[2022-07-19] MEDS ORDERED: NON-FORMULARY MEDICATION (Ascorbic Acid (Vitamin C) [Vitamin C] 1,000 mg Tablet) PO SCH (09:00)
[2022-07-19] MEDS ORDERED: TOCOPHERYL, DL-ALPHA 100 UNITS 67 MG CAP PO SCH (09:00)
[2022-07-19] MEDS ORDERED: NON-FORMULARY MEDICATION (Fluticasone-Umeclidin-Vilanter [Trelegy Ellipta] 100-62.5-25 mcg INH SCH (09:00)
[2022-07-19] MEDS ORDERED: OMEGA-3 (PURIFIED FISH OIL) 1 GM CAP PO SCH (09:00)
[2022-07-19] MEDS ORDERED: UMECLIDINIUM/VILANTEROL 62.5/25MCG 7 PUFFS/INHALER INH SCH (09:00)
[2022-07-19] MEDS ORDERED: MULTIVITAMIN TAB PO SCH (09:00)
[2022-07-19] MEDS ORDERED: CHOLECALCIFEROL 1,000 UNITS 25 MCG TAB PO SCH (09:00)
[2022-07-19] MEDS ORDERED: FLUTICASONE FUROATE 100MCG 14 PUFFS/INHALER INH SCH (09:00)
[2022-07-19] MEDS ORDERED: CETIRIZINE HCL 10 MG TABLET PO SCH (09:00)
[2022-07-19] MEDS ORDERED: NON-FORMULARY MEDICATION (Biotin 1 mg Capsule) PO SCH (09:00)
[2022-07-19] MEDS ORDERED: FUROSEMIDE 20 MG TAB PO SCH (09:00)
[2022-07-19] MEDS ORDERED: lisinopril 10 MG TAB PO SCH (09:00)
[2022-07-19 09:37] LABS: BUN Creatinine Ratio 30.9 (10-20); Calcium 9.2 mg/dl (8.6-10.3); Creatinine Clr Calc Pharmacy 64.5 ml/min; Est GFR (African American) 93.8 ml/min; Est GFR (Non-African American) 80.9 ml/min; Potassium 4.5 mmol/L (3.5-5.1)
--- NOTE | 2022-07-19 15:21 | Progress Notes ---
DATE OF SERVICE: 07/19/2022 SUBJECTIVE: An 82-year-old female postoperative day 1 from right knee replacement. She is doing armani te well. Pain is controlled. Therapy went well. She is hoping to go home. No chest pain or shortn ess of breath. Not feeling dizzy or lightheaded. OBJECTIVE: VITAL SIGNS: Temperature is 36.8. Vital signs are stable. PHYSICAL EXAMINATION: GENERAL: Physical exam shows a pleasant, elderly female. She is sitting up in bed and talking to marley teddy. LUNGS: Clear to auscultation. HEART: Has a regular rate and rhythm. ABDOMEN: Soft, nontender, and nondistended. EXTREMITIES: Grossly neurovascularly intact except as follows. Examination of the right leg reveals the dressing to be clean, dry, and intact. She can dorsiflex an d plantarflex her foot appropriately. She is neurologically intact. LABORATORY DATA: Hemoglobin 12.6. Hematocrit 35.8. Electrolytes are stable. ASSESSMENT: An 82-year-old female postoperative day 1 from a right knee replacement, doing quite wel l. Pain is controlled. She is neurologically intact. She is hoping to go to [facility] today. PLAN: 1. DVT prophylaxis to include thigh-high TEDs, SCDs, and aspirin twice a day. 2. PT, OT, and weightbear as tolerated. Right total knee protocol. 3. Pain control, doing okay with current pain regimen. 4. Disposition: Plan is to discharge to [facility] today. Job ID: [id number]
--- NOTE | 2022-07-22 14:26 | Discharge Summary ---
Date of Service July 22, 2022 Discharge Data Procedures Performed Operation Date: 07/18/22 12:30 Actual Procedures p Right Total Knee Arthroplasty, Cemented(Right) - Sanjeev Rosales MD Hospital Course (1) Status post total right knee replacement: This is a 82 year old patient admitted on 07/18/22 and underwent total knee arthroplasty. She tolerated the procedure well and there were no complications. Transferred to the PACU post op and later to the orthopedic floor for further care. She was given ancef for antibiotic prophylaxis. She was also given LUMA stockings, SCDs, and aspirin for DVT prophylaxis. Hemoglobin, hematocrit, and vital signs were monitored during her hospital stay and remained stable. Did not require any blood transfusions. There were no complications during her hospital stay. By post op day #1 the patient was tolerating a regular diet, pain was reasonably controlled with oral pain medicine, and he was participating in physical therapy. On post op day #1 the patient was discharged to a rehab facility. She was given printed discharge instructions including prescriptions for extra strength tylenol, aspirin,ketorolac, zofran, senokot, and oxycodone. Continue physical therapy, weight bearing as tolerated. Continue LUMA stockings. Follow up approximately 2 weeks post op or sooner if there are problems or concerns. Coding Level of Care Code None Diagnoses Status post total right knee replacement Z96.651
== END 2022-07-19 15:26 | DRG 470 ==
LOC: ASU 10:16 → 3E 14:11